=== PATIENT | male | born 1990 | race Caucasian/White ===

== ENCOUNTER 2022-01-04 07:09 | Emergency (ER) | payer MEDICAID ==
[~2022-01-04] VITALS: Ht 172.7 cm; Wt 127.0 kg
[2022-01-04 07:11] VITALS: BP 179/105
[2022-01-04] MEDS ORDERED: SODIUM CHLORIDE 0.9% 1,000 ML IV ONE (08:45)
[2022-01-04] MEDS ORDERED: LORAZEPAM 0.5MG TABLET PO ONE (08:45)
[2022-01-04] MEDS ORDERED: ONDANSETRON HCL 4MG/2ML INJ IV ONE (08:45)
[2022-01-04 09:05] LABS: BASOPHILS % 0.4 % (0.0-2.0); EOSINOPHILS % 3.4 % (0.0-5.0); HEMOGLOBIN. 14.8 g/dL (14.0-18.0); LYMPHOCYTES % 23.8 % (20.0-50.0); MEAN CORPUSCULAR VOLUME 82.3 fL (80.0-94.0); MEAN PLATELET VOLUME 7.1 fl (7.4-10.4); NEUTROPHILS % 60.4 % (40.0-76.0); PLATELET 263 x1000/uL (130-400); RED CELL DISTRIBUTION WIDTH 13.3 % (11.6-14.6)
[2022-01-04 09:21] LABS: CHLORIDE 106 mEq/L (98-107)
[2022-01-04 09:24] LABS: *AMPHETAMINES SCREEN URINE NEGATIVE (NEGATIVE); *BARBITURATES SCREEN URINE NEGATIVE (NEGATIVE); *BENZODIAZEPINES SCREEN URINE NEGATIVE (NEGATIVE); *COCAINE SCREEN URINE NEGATIVE (NEGATIVE); CANNABINOID URINE SCREEN NEGATIVE (NEGATIVE); METHADONE URINE SCREEN NEGATIVE (NEGATIVE); OPIATES URINE SCREEN NEGATIVE (NEGATIVE); PHENCYCLIDINE URINE SCREEN NEGATIVE (NEGATIVE)
[2022-01-04 09:27] LABS: ETHANOL BLOOD < 10 mg/dL
[2022-01-04] MEDS ORDERED: POTASSIUM CHLORIDE 20MEQ TABLET SR PO ONE (10:00)
== END 2022-01-04 12:02 | disposition home or self-care (01) ==
LOC: ER 07:36
DX: R00.2 Palpitations (principal); R00.0 Tachycardia, unspecified; R11.10 Vomiting, unspecified; F41.9 Anxiety disorder, unspecified; J45.909 Unspecified asthma, uncomplicated; F32.9 Major depressive disorder, single episode, unspecified
CPT/HCPCS: 36415; 71045; 80053; 80305; 80320; 83690; 84443; 84484; 85025; 85379; 93005; 96360; 96361; 99285; J2405; J7030; G0480

== ENCOUNTER 2024-02-03 05:00 | Emergency (ER) | payer MEDICAID ==
[~2024-02-03] VITALS: Ht 172.7 cm; Wt 122.0 kg
[2024-02-03 05:26] VITALS: TEMP 98.6; O2SAT 99
[2024-02-03 06:00] VITALS: BP 152/98; PULSE 70; RESP 20
[2024-02-03] MEDS: IBUPROFEN 800MG TABLET PO ONE (06:00)
[2024-02-03] MEDS ORDERED: T3 PO (06:02)
[2024-02-03] MEDS ORDERED: AMOX1TAB16 PO (06:02)
[2024-02-03] MEDS ORDERED: IBUP-2028 PO (06:02)
== END 2024-02-03 06:21 | disposition home or self-care (01) ==
LOC: ER 05:00
DX: K08.89 Other specified disorders of teeth and supporting structures (principal); I10 Essential (primary) hypertension; J45.909 Unspecified asthma, uncomplicated
CPT/HCPCS: 99283